=== PATIENT | male | born 1995 | race African-American/Black ===

== ENCOUNTER 2017-06-19 09:15 | Emergency (ER) | payer SELFPAY ==
[~2017-06-19] VITALS: Ht 182.9 cm; Wt 100.0 kg
[2017-06-19 09:24] VITALS: BP 165/75; PULSE 120; RESP 18; TEMP 99.5; O2SAT 99
[2017-06-19] MEDS ORDERED: SODIUM CHLOR 0.9% 1000 ML INJ 1,000 ML IV SCH (09:36)
[2017-06-19 09:38] VITALS: BP 135/82; PULSE 121; RESP 17; O2SAT 100
[2017-06-19] MEDS ORDERED: SODIUM CHLORIDE 0.9% FLUSH 10 ML FLUSH IV FLUSH PRN (09:45)
[2017-06-19] MEDS ORDERED: ONDANSETRON HCL 4 MG/2 ML VIAL IVP ONE (09:45)
--- NOTE | 2017-06-19 09:51 | PD ---
HPI Chief Complaint: GI Complaint Time Seen by Provider: 09:49 Travel History International Travel<30 days: No Contact w/Intl Traveler<30days: No Traveled to known affect area: No History of Present Illness HPI 22-year-old male patient with history of no significant past medical issues, presents to the ER today with 3 days history of nausea, vomiting, and multiple episodes of diarrhea, feeling more tired and weak. He thinks he may have had some low-grade fevers although he is not sure. He denies any significant abdominal pains currently, denies any other issues. He does not know of any sick contacts or bad food exposure. Modifying Factors: None Associated Signs & Symptoms: Nausea, vomiting, diarrhea Risk Factors: None PFSH Past Medical History Medical History: Denies Significant Hx Diminished Hearing: No Tetanus Vaccination: > 5 Years Influenza Vaccination: No ?: Not Social History Alcohol Use: Yes (Occasionally) Tobacco Use: No Substance Use: Yes (Marijuana) Allergies-Medications (Allergen,Severity, Reaction): Coded Allergies: No Known Allergies (Unverified , 06/19/17) Reported Meds & Prescriptions Reported Meds & Active Scripts Active No Active Prescriptions or Reported Medications Review of Systems Except as stated in HPI: all other systems reviewed are Neg Physical Exam Narrative GENERAL: Well-developed young -Martiniquais male patient currently in mild distress. Awake and oriented 3. SKIN: Focused skin assessment warm/dry. HEAD: Atraumatic. Normocephalic. EYES: Pupils equal and round. No scleral icterus. No injection or drainage. ENT: No nasal bleeding or discharge. Mucous membranes pink and moist. NECK: Trachea midline. No JVD. Supple. CARDIOVASCULAR: Regular rate and rhythm. No murmur appreciated. RESPIRATORY: No accessory muscle use. Clear to auscultation. Breath sounds equal bilaterally. GASTROINTESTINAL: Abdomen soft, non-tender, nondistended. Hepatic and splenic margins not palpable. MUSCULOSKELETAL: No obvious deformities. No clubbing. No cyanosis. No edema. NEUROLOGICAL: Awake and alert. No obvious cranial nerve deficits. Motor grossly within normal limits. Normal speech. PSYCHIATRIC: Appropriate mood and affect; insight and judgment normal. Data Data Last Documented VS Vital Signs Date Time Temp Pulse Resp B/P (MAP) Pulse Ox O2 Delivery O2 Flow Rate FiO2 06/19/17 10:34 102 16 128/73 (91) 100 Room Air 06/19/17 09:24 99.5 Orders Orders Complete Blood Count With Diff (06/19/17 09:36) Comprehensive Metabolic Panel (06/19/17 09:36) Lipase (06/19/17 09:36) Iv Access Insert/Monitor (06/19/17 09:36) Ecg Monitoring (06/19/17 09:36) Oximetry (06/19/17 09:36) Ondansetron Inj (Zofran Inj) (06/19/17 09:45) Sodium Chlor 0.9% 1000 Ml Inj (Ns 1000 M (06/19/17 09:36) Sodium Chloride 0.9% Flush (Ns Flush) (06/19/17 09:45) Ct Abd/Pel W Iv Contrast(Rout) (06/19/17 10:51) Iohexol 350 Inj (Omnipaque 350 Inj) (06/19/17 11:15) Ed Discharge Order (06/19/17 11:43) Labs Laboratory Tests Test 06/19/17 09:41 White Blood Count 4.1 TH/MM3 Red Blood Count 6.28 MIL/MM3 Hemoglobin 19.0 GM/DL Hematocrit 53.9 % Mean Corpuscular Volume 85.8 FL Mean Corpuscular Hemoglobin 30.2 PG Mean Corpuscular Hemoglobin Concent 35.2 % Red Cell Distribution Width 13.2 % Platelet Count 131 TH/MM3 Mean Platelet Volume 8.8 FL Neutrophils (%) (Auto) 60.2 % Lymphocytes (%) (Auto) 29.7 % Monocytes (%) (Auto) 9.5 % Eosinophils (%) (Auto) 0.0 % Basophils (%) (Auto) 0.6 % Neutrophils # (Auto) 2.5 TH/MM3 Lymphocytes # (Auto) 1.2 TH/MM3 Monocytes # (Auto) 0.4 TH/MM3 Eosinophils # (Auto) 0.0 TH/MM3 Basophils # (Auto) 0.0 TH/MM3 CBC Comment DIFF FINAL Differential Comment Blood Urea Nitrogen 14 MG/DL Creatinine 1.30 MG/DL Random Glucose 118 MG/DL Total Protein 8.1 GM/DL Albumin 3.8 GM/DL Calcium Level 8.4 MG/DL Alkaline Phosphatase 57 U/L Aspartate Amino Transf (AST/SGOT) 58 U/L Alanine Aminotransferase (ALT/SGPT) 36 U/L Total Bilirubin 0.3 MG/DL Sodium Level 132 MEQ/L Potassium Level 3.8 MEQ/L Chloride Level 100 MEQ/L Carbon Dioxide Level 21.8 MEQ/L Anion Gap 10 MEQ/L Estimat Glomerular Filtration Rate 83 ML/MIN Lipase 601 U/L MDM Medical Decision Making Medical Screen Exam Complete: Yes Emergency Medical Condition: Yes Medical Record Reviewed: Yes Interpretation(s) Laboratory Tests Test 06/19/17 09:41 Red Blood Count 6.28 MIL/MM3 (4.50-5.90) Hemoglobin 19.0 GM/DL (13.0-17.0) Hematocrit 53.9 % (39.0-51.0) Platelet Count 131 TH/MM3 (150-450) Monocytes (%) (Auto) 9.5 % (0.0-8.0) Random Glucose 118 MG/DL (74-106) Calcium Level 8.4 MG/DL (8.5-10.1) Aspartate Amino Transf (AST/SGOT) 58 U/L (15-37) Sodium Level 132 MEQ/L (136-145) Estimat Glomerular Filtration Rate 83 ML/MIN (>89) Lipase 601 U/L (73-393) Last 24 hours Impressions Abdomen/Pelvis CT 06/19/17 1051 Signed Impressions: Service Date/Time: Monday, June 19, 2017 11:10 - CONCLUSION: 1. Minimal atelectatic changes in the right base. 2. Otherwise, negative exam. No acute intraperitoneal or pelvic process to explain current clinical symptoms. Дмитрий Ferrera MD Differential Diagnosis Gastroenteritis versus dehydration versus metabolic issues versus pancreatitis Narrative Course Lab work shows elevated lipase of 600. LFTs were otherwise unremarkable. CAT scan was ordered to evaluate further this issue and did not show any signs of acute intra-abdominal processes. Patient was given IV fluids and Zofran in the ER. On reevaluation at 11:40 AM, he is feeling improved, did not have any vomiting episodes in the ER. At this point, I have taught him further regarding findings and he admits that he had been drinking before but has not drank since he got sick. He has been told to avoid alcohol now, and I have talked to him regarding outpatient therapy with clear fluid diet versus admission as an observation, the patient states he feels fine and wants to try to do this as an outpatient. He should return for any worsening in pains, vomiting, or new symptoms. He is also asking for something for diarrhea as well. The plan was discussed with him he states understanding. Diagnosis Primary Impression: Pancreatitis Med/Other Pt SpecificInfo: Prescription(s) given Scripts Loperamide (Imodium A-D) 2 Mg Capsule 2 MG PO Q6H Y for DIARRHEA, #30 CAP 0 Refills Prov: Kennedy Bryant MD 06/19/17 Ondansetron Odt (Zofran Odt) 4 Mg Tab 4 MG SL Q6HR Y for Nausea/Vomiting, #7 TAB 0 Refills Prov: Kennedy Bryant MD 06/19/17 Disposition: 01 DISCHARGE HOME Condition: Stable Kennedy Bryant MD Jun 19, 2017 09:51
[2017-06-19 09:57] LABS: AUTOMATED NEUTROPHIL # 2.5 TH/MM3 (1.8-7.7); BASOPHIL % 0.6 % (0.0-2.0); HEMATOCRIT 53.9 % (39.0-51.0); LYMPH % 29.7 % (9.0-44.0); LYMPHOCYTE # 1.2 TH/MM3 (1.0-4.8); MEAN CELL VOLUME 85.8 FL (80.0-100.0); MEAN CORPUSCULAR HEMOGLOBIN 30.2 PG (27.0-34.0); MEAN CORPUSCULAR HGB CONC 35.2 % (32.0-36.0); MEAN PLATELET VOLUME 8.8 FL (7.0-11.0); MONO % 9.5 % (0.0-8.0); MONOCYTE # 0.4 TH/MM3 (0-0.9); NEUT % 60.2 % (16.0-70.0); PLATELET COUNT 131 TH/MM3 (150-450); RED BLOOD COUNT 6.28 MIL/MM3 (4.50-5.90); RED CELL DISTRIBUTION WIDTH 13.2 % (11.6-17.2); WHITE BLOOD COUNT 4.1 TH/MM3 (4.0-11.0)
[2017-06-19 10:20] LABS: ALBUMIN 3.8 GM/DL (3.4-5.0); ALT (GPT) 36 U/L (12-78); AST (GOT) 58 U/L (15-37); BICARBONATE 21.8 MEQ/L (21.0-32.0); BLOOD UREA NITROGEN 14 MG/DL (7-18); CALCIUM 8.4 MG/DL (8.5-10.1); CHLORIDE 100 MEQ/L (98-107); GLOMERULAR FILTRATION RATE 83 ML/MIN (>89); GLUCOSE,RANDOM 118 MG/DL (74-106); SODIUM (NA) 132 MEQ/L (136-145)
[2017-06-19 10:21] LABS: ALKALINE PHOSPHATASE 57 U/L (45-117); TOTAL BILIRUBIN ADULT 0.3 MG/DL (0.2-1.0); TOTAL PROTEIN 8.1 GM/DL (6.4-8.2)
[2017-06-19 10:34] VITALS: BP 128/73; PULSE 102; RESP 16; O2SAT 100
[2017-06-19] MEDS ORDERED: IOHEXOL 350 MG/ML 10 ML VIAL (for RAD DIAG) IVCONTRAST ONE (11:15)
--- NOTE | 2017-06-19 11:37 | RADRPT ---
EXAM DATE/TIME: 06/19/2017 11:10 [facility] COMPARISON: No previous studies available for comparison. INDICATIONS : Generalized abdomen pain for 5 days, nausea and diarrhea IV CONTRAST: 95 cc Omnipaque 350 (iohexol) IV ORAL CONTRAST: No oral contrast ingested. RADIATION DOSE: 15.13 CTDIvol (mGy) MEDICAL HISTORY : None SURGICAL HISTORY : None. ENCOUNTER: Initial ACUITY: 1 day PAIN SCALE: 4/10 LOCATION: abdomen TECHNIQUE: Volumetric scanning of the abdomen and pelvis was performed. Using automated exposure control and ad justment of the mA and/or kV according to patient size, radiation dose was kept as low as reasonably achievable to obtain optimal diagnostic quality images. DICOM format image data is available electro nically for review and comparison. FINDINGS: LOWER LUNGS: Minimal dependent atelectatic changes posteriorly on the right. Lung bases are otherwise clear. LIVER: Homogeneous density without lesion. There is no dilation of the biliary tree. No calcified gallston es. SPLEEN: Normal size without lesion. PANCREAS: Within normal limits. KIDNEYS: Normal in size and shape. There is no mass, stone or hydronephrosis. ADRENAL GLANDS: Within normal limits. VASCULAR: There is no aortic aneurysm. BOWEL/MESENTERY: The stomach, small bowel, and colon demonstrate no acute abnormality. There is no free intraperitone al air or fluid. The appendix is identified and is radiographically normal. ABDOMINAL WALL: Within normal limits. RETROPERITONEUM: There is no lymphadenopathy. BLADDER: No wall thickening or mass. REPRODUCTIVE: Within normal limits. INGUINAL: There is no lymphadenopathy or hernia. MUSCULOSKELETAL: Within normal limits for patient age. CONCLUSION: 1. Minimal atelectatic changes in the right base. 2. Otherwise, negative exam. No acute intraperitoneal or pelvic process to explain current clinical s ymptoms. Дмитрий Ferrera MD on June 19, 2017 at 11:25 Board Certified Radiologist. This report was verified electronically.
[2017-06-19] MEDS ORDERED: ZOFR4TAB3 SL (11:46)
[2017-06-19] MEDS ORDERED: LOPE-1 PO (11:46)
== END 2017-06-19 12:14 | disposition home or self-care (01) ==
LOC: NEPE 09:15
DX: K85.90 Acute pancreatitis without necrosis or infection, unspecified (principal); R11.2 Nausea with vomiting, unspecified; R19.7 Diarrhea, unspecified
CPT/HCPCS: 74177; 80053; 83690; 85025; 96361; 96374; 99284; J2405; J7030; Q9967